=== PATIENT | male | born 1985 | race African-American/Black ===

== ENCOUNTER 2019-04-28 21:49 | Inpatient (IN) | payer SELFPAY ==
[2019-04-28] MEDS ORDERED: Lidocaine 2% EPI 1:200000 MPF*10-20 ML VIAL ONE (22:46)
--- NOTE | 2019-04-29 01:07 | ED ---
Shortness of Breath - HPI Summary HPI Summary: A 34 y/o male presents to [facility] with a chief complaint of SOB for the past few weeks. He also reports headache, eye pain, cough, fevers, chills, N/V. He denies abdominal pain, dysuria, or swelling in his legs. His BMs have been normal. He also claims that he has had lower back pain for 2 months saying after tying his shoe one day his back started to hurt. He denies EtOH use but reports smoking 1ppd. He reports that his cousin may have a Hx of bloodclots and HTN, but he denies any long travel. He denies taking any medications. He denies any STDs but last time he was tested was 1.5 years ago. The patient has a boyfriend. - History of Current Complaint Chief Complaint: EDShortnessOfBreath Time Seen by Provider: 04/29/19 00:48 Hx Obtained From: Patient Onset/Duration: Gradual Onset, Lasting Weeks, Still Present Timing: Constant Current Severity: Mild Dyspnea At: Rest Aggravating Factors: Nothing Alleviating Factors: Nothing Associated Signs & Symptoms: Cough (Nonproductive), Fever, Chills - Allergy/Home Medications Allergies/Adverse Reactions: Allergies Allergy/AdvReac Type Severity Reaction Status Date / Time No Known Allergies Allergy Verified 04/28/19 21:52 PMH/Surg Hx/FS Hx/Imm Hx Sensory History: Denies: Hx Deafness EENT History: Denies: Hx Deafness Infectious Disease History: No Infectious Disease History: Denies: Traveled Outside the [place] in Last 30 Days - Family History Known Family History: Positive: Hypertension, Blood Disorder - Social History Alcohol Use: None Hx Substance Use: No Substance Use Type: Reports: None Hx Tobacco Use: Yes Smoking Status (MU): Current Every Day Smoker Type: Cigarettes Amount Used/How Often: 1ppd Review of Systems Positive: Fever, Chills Eyes: Other - positive: eye pain Positive: Shortness Of Breath, Cough Positive: Vomiting, Nausea. Negative: Abdominal Pain Negative: dysuria Positive: Myalgia - back pain. Negative: Edema Positive: Headache All Other Systems Reviewed And Are Negative: Yes Physical Exam - Summary Physical Exam Summary: Constitutional: Well-developed, Well-nourished, Alert. (-) Distressed Skin: Warm, Dry HENT: Normocephalic; Atraumatic Eyes: Conjunctiva normal Neck: Musculoskeletal ROM normal neck. (-) JVD, (-) Stridor, (-) Tracheal deviation Cardio: Tachycardic, normal S1 [id number] sounds normal; Intact distal pulses; The pedal pulses are 2+ and symmetric. Radial pulses are 2+ and symmetric. Pulmonary/Chest wall: Effort normal. (-) Respiratory distress, (-) Wheezes, (-) Rales Abd: Soft, (-) tenderness, (-) Distension, (-) Guarding, (-) Rebound Musculoskeletal: (-) Edema Neuro: Alert, Oriented x3 Psych: Mood and affect Normal Triage Information Reviewed: Yes Vital Signs On Initial Exam: Initial Vitals Temp Pulse Resp BP Pulse Ox 100.5 F 103 18 146/80 100 04/28/19 21:51 04/28/19 21:51 04/28/19 21:51 04/28/19 21:51 04/28/19 21:51 Vital Signs Reviewed: Yes Diagnostics - Vital Signs Vital Signs Temp Pulse Resp BP Pulse Ox 04/28/19 23:43 99.6 F 103 16 136/65 93 04/28/19 21:51 100.5 F 103 18 146/80 100 - Laboratory Result Diagrams: 04/29/19 01:56 04/29/19 01:19 Lab Statement: Any lab studies that have been ordered have been reviewed, and results considered in the medical decision making process. - CT Chest/thorax CTA CT Interpretation Completed By: Radiologist Summary of CT Findings: Negative CTA chest. No pulmonary embolism is identified. ED physician has reviewed this imaging report. Re-Evaluation - Re-Evaluation First Eval Re-Evaluation Time: 02:41 Change: Unchanged Comment: he consented for blood transfusion Course/Dx - Course Course Of Treatment: A 34 y/o male presents to [facility] with a chief complaint of SOB for the past few weeks. The physical exam revealed that the patient is tachycardic, normal S1 S2, no wheezing, rhonchi or rales. Chest/thorax CTA impression: Negative CTA chest. No pulmonary embolism is identified. Bloodwork, chemistries and urines obtained. Hemoglobin of 4.6 and platelet count of 3. The patient tested negative for HIV. In the ED course the patient was given Pepcid IV, Iodixanol IV, Toradol IV, Lactated Ringers IV, Xylocaine and Zofran IV. Case discussed with Dr. Montalvo, hospitalist, who accepted the patient for admission. The patient is agreeable with this plan. - Diagnoses Provider Diagnoses: Thrombocytopenia, Anemia - Physician Notifications Discussed Care of Patient With: Salvador Montalvo Time Discussed With Above Provider: 03:32 Instructed by Provider To: Admit As Inpatient Discharge - Sign-Out/Discharge Documenting (check all that apply): Patient Departure - admit All imaging exams completed and their final reports reviewed: Yes Patient Received Moderate/Deep Sedation with Procedure: No - Discharge Plan Condition: Fair Disposition: ADMITTED TO [facility] - Billing Disposition and Condition Condition: FAIR Disposition: Admitted to [facility] - Attestation Statements Document Initiated by Jessica: Yes Documenting Scribe: John Rowland Provider For Whom Jessica is Documenting (Include Credential): Noman Raymundo MD Scribe Attestation: John Cooper scribed for Noman Raymundo MD on 04/29/19 at 0629. Scribe Documentation Reviewed: Yes Provider Attestation: The documentation as recorded by the John tillman accurately reflects the service I personally performed and the decisions made by , Noman Raymundo MD Status of Scribe Document: Viewed
[2019-04-29] MEDS ORDERED: Ondansetron INJ* 2 MG/ML VIAL IV ONE (01:08)
[2019-04-29] MEDS ORDERED: Famotidine IV* 10 MG/ML 2 ML (20 mg) IV SLOW PU ONE (01:08)
[2019-04-29] MEDS ORDERED: Ketorolac INJ* 30 MG/ML 1 ML VIAL IV PUSH ONE (01:09)
[2019-04-29 01:21] LABS: Urine Appearance Clear; Urine Bilirubin Negative (Negative); Urine Blood Negative (Negative); Urine Color Yellow; Urine Glucose Negative (Negative); Urine Ketones Negative (Negative); Urine Nitrite Negative (Negative); Urine Protein Negative (Negative); Urine Specific Gravity 1.019 (1.010-1.030); Urine Urobilinogen Negative (Negative)
[2019-04-29 01:39] LABS: Hematocrit 13 % (42-52); Hemoglobin 4.9 g/dL (14.0-18.0); Mean Corpuscular HGB Conc 36 g/dL (31-36); Mean Corpuscular Hemoglobin 38 pg (27-31); Mean Corpuscular Volume 105 fL (80-94); Mean Platelet Volume 9.4 fL (7.4-10.4); Platelet Count 3 10^3/uL (150-450); Red Blood Count 1.28 10^6 /uL (4.18-5.48); Red Cell Distribution Width 16 % (10-15)
[2019-04-29 01:42] LABS: Albumin 4.2 g/dL (3.2-5.2); BUN/Creatinine Ratio 12.6 (8-20); Calcium 8.9 mg/dL (8.6-10.3); EGFR African American 67.7 (>60); Globulin 2.1 g/dL (2-4); Potassium 3.8 mmol/L (3.5-5.0); Total Bilirubin 0.5 mg/dL (0.2-1.0); Total Protein 6.3 g/dL (6.4-8.9)
[2019-04-29] MEDS ORDERED: Iodixanol* (CONTRAST) 320 MG/ML 100 ML SDV IV ONE (01:52)
[2019-04-29] MEDS ORDERED: Lactated Ringers 1000 ML Bag* 1,000 ML IV ONE (02:00)
[2019-04-29 02:20] LABS: Hematocrit 14 % (42-52); Mean Corpuscular HGB Conc 36 g/dL (31-36); Mean Corpuscular Hemoglobin 38 pg (27-31); Mean Corpuscular Volume 106 fL (80-94); Mean Platelet Volume 9.1 fL (7.4-10.4); Red Blood Count 1.27 10^6 /uL (4.18-5.48); Red Cell Distribution Width 16 % (10-15)
[2019-04-29 03:04] LABS: HIV 4th Generation Negative (Negative)
[2019-04-29 03:39] LABS: Activated Partial Thrombo Time 32.7 seconds (26.0-38.0); INR 1.16 (0.82-1.09)
[2019-04-29 05:19] LABS: ABS Lymphocytes 2.3 10^3/ul (1.0-4.8); ABS Monocytes 0.1 10^3/ul (0-0.8); ABS Neutrophils 0.6 10^3/ul (1.5-7.7); Lymphocyte % 76.6 %; Nucleated Red Blood Cells % 0.1
[2019-04-29 05:21] LABS: ABS Lymphocytes 2.3 10^3/ul (1.0-4.8); ABS Monocytes 0.1 10^3/ul (0-0.8); ABS Neutrophils 0.6 10^3/ul (1.5-7.7); Lymphocyte % 75.3 %; Nucleated Red Blood Cells % 0.1
[2019-04-29 05:30] LABS: Folate 11.37 ng/mL (>3.99)
[2019-04-29 07:12] LABS: Hematocrit 14 % (42-52); Hemoglobin 4.9 g/dL (14.0-18.0); Mean Corpuscular HGB Conc 37 g/dL (31-36); Mean Corpuscular Hemoglobin 39 pg (27-31); Mean Corpuscular Volume 105 fL (80-94); Mean Platelet Volume 9.8 fL (7.4-10.4); Platelet Count 2 10^3/uL (150-450); Red Blood Count 1.28 10^6 /uL (4.18-5.48); Red Cell Distribution Width 16 % (10-15); White Blood Count 2.7 10^3/uL (3.5-10.8)
[2019-04-29] MEDS ORDERED: Acetaminophen TAB* 325 MG PO PRN (07:25)
--- NOTE | 2019-04-29 07:59 | HP ---
History of Present Illness - History of Present Illness Reason for Visit: dyspnea History of Present Illness: Patient is 34 year old man with no significant past medical history, who has been increasingly short of breath for 2 weeks. He also has had low energy for 2 weeks, and has had low back pain for 1 year. This evening he had a headache and pain behind his eyes, so he decided to come to the ER. He just moved to [facility] from [place] about 5-6 weeks ago, and he has no primary care doctor here. He denies fever, denies chest pain. He has not traveled out of [place] recently, and he is on no new medications. 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 [employer] Alcohol: None Drugs: None Lives: Other - monogamous male partner, no children Review of Systems - Measurements Intake and Output: Intake and Output Last 24 Hours 04/27/19 04/28/19 04/29/19 04/30/19 06:59 06:59 06:59 06:59 Weight 79.605 kg - Review of Systems Constitutional Symptoms: Positive: Weakness, Fatigue Negative: Weight Gain, Weight Loss, Fever, Night Sweats Dermatology: Positive: Normal HEENT: Positive: Normal Eyes: Positive: Eye Pain Negative: Change in Vision, Double Vision Thyroid: Positive: Normal Pulmonary: Positive: Shortness of Breath, Exercise Intolerance Negative: Cough, Hemoptysis, Wheezing Cardiology: Positive: Shortness of Breath Negative: Chest Pain, Palpitations, Syncope, Proximal NocturnalDyspnea Gastroenterology: Positive: Normal Genital - Urinary: Positive: Normal Musculoskeletal: Positive: Low Back Pain Endocrinology: Positive: Normal Hematologic/Lymphatic: Negative: Hx Leukemia, Hx Lymphoma, Use of Anticoagulant, Use of Antiplatelet Drugs Neurology: Positive: Headache Negative: Migraines, Change in Vision Psychiatry: Positive: Normal Allergic/Immunologic: Negative: Hx HIV Objective Active Medications: Home Medication: Acetaminophen (Tylenol Tab*) 650 mg PO Q6H PRN Vital Signs - 8 hr 04/29/19 04/29/19 04/29/19 00:49 00:51 01:00 Temperature Pulse Rate 93 93 109 Respiratory Rate Blood Pressure 163/77 (mmHg) O2 Sat by Pulse 100 100 100 Oximetry 04/29/19 04/29/19 06:27 06:51 Temperature 36.3 C Pulse Rate 90 Respiratory 20 20 Rate Blood Pressure 136/65 (mmHg) O2 Sat by Pulse 100 Oximetry Selected Entries 04/28/19 04/28/19 04/29/19 21:51 23:43 05:59 Temperature 38.1 C 37.6 C 36.6 C 04/29/19 06:27 Temperature 36.3 C Oxygen Devices in Use Now: None Appearance: alert, no distress Eyes: No Scleral Icterus, - - pale conjunctiva Ears/Nose/Mouth/Throat: NL Teeth, Lips, Gums, Clear Oropharnyx Neck: NL Appearance and Movements; NL JVP, Trachea Midline Respiratory: Symmetrical Chest Expansion and Respiratory Effort, Clear to Auscultation Cardiovascular: NL Sounds; No Murmurs; No JVD, RRR Abdominal: NL Sounds; No Tenderness; No Distention, No Hepatosplenomegaly Lymphatic: No Cervical Adenopathy, No Axillary Adenopathy Extremities: No Edema Skin: No Rash or Ulcers Neurological: Alert and Oriented x 3, NL Muscle Strength and Tone Lines/Tubes/Other Access: Clean, Dry and Intact Peripheral IV Nutrition: Taking PO's Result Diagrams: 04/29/19 06:21 04/29/19 01:19 Additional Lab and Data: Laboratory Tests 04/29/19 04/29/19 04/29/19 00:52 01:19 01:56 INR (Anticoag Therapy) APTT Glucose 99 AST 22 ALT 25 Lipase 31 Ur Specific [place] 1.019 Urine Protein Negative Urine Blood Negative Ur Leukocyte Esterase Negative HIV 1&2 Ab/P24 Ag 4thGn Negative 04/29/19 02:55 INR (Anticoag Therapy) 1.16 H APTT 32.7 Glucose AST ALT Lipase Ur Specific [place] Urine Protein Urine Blood Ur Leukocyte Esterase HIV 1&2 Ab/P24 Ag 4thGn Diagnostic Imaging: CTA chest: no infiltrates, no pulmonary emboli Assess/Plan/Problems-Billing Assessment: 34 year old presenting with pancytopenia - Patient Problems (1) Pancytopenia Current Visit: Yes Status: Acute Priority: High Code(s): D61.818 - OTHER PANCYTOPENIA SNOMED Code(s): 152249352 Comment: -Patient will be admitted to medical service, will consult with Dr. Ospina of hematology -Differential diagnosis would include leukemia, viral exposure such as CMV, bacterial illness such as rickettsia or erlichiosis/babesiosis, drug-induced, or rheumatic disease. -HIV test negative, discussed with patient. -Patient had low-grade fever on admission, does not appear to have sepsis. (2) DVT prophylaxis Current Visit: Yes Status: Acute Priority: Low Code(s): Z29.9 - ENCOUNTER FOR PROPHYLACTIC MEASURES, UNSPECIFIED SNOMED Code(s): 945467775 Comment: -early ambulation Status and Disposition: inpatient
[2019-04-29 08:04] LABS: Uric Acid 4.3 mg/dL (4.4-7.6)
--- NOTE | 2019-04-29 08:18 | CONSULT ---
Consultation - Reason for Consultation Reason for Consultation: pancytopenia, febrile neutropenia Ordering Provider: Salvador Montalvo Chief Complaint: shortness of breath and fatigue History of Present Illness: Generally well 34 yo homosexual M w no significant PMH presenting with fatigue and increasing SOB and found to be pancytopenic. Nelson reports feeling generally very well and active until 2 1/2 weeks ago when he starting becoming progressively more fatigued and SOB on activity. 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 At the urging of his partner he came to the ER where he was febrile at 100.5 with an ANC of 600, Hb of 4.9, mcv 105 and platelets of 3 (normal MPV). Hematology was not notified at the time. CTA of the chest was unremarkable. He was admitted with a diagnosis of pancytopenia. Unfortunately he has not had blood or urine cultures or antibiotics as of yet, though these are now ordered upon my consultation. He denies fevers, night sweats, weight loss, rash, joint aches, or anorexia. Acute HIV was negative, liver enzymes, including bilirubin were normal, and B12 was 222. He has no remarkable family history and is not aware of any tick bites. He is currently receiving a unit of blood. Allergies/Medications Medication: Acetaminophen (Tylenol Tab*) 650 mg PO Q6H PRN PRN Reason: pain/fever Cefepime HCl (Maxipime 2 Gm In Dextrose Duplex (*)) 2 gm in 50 mls @ 100 mls/ hr IV Q8H YANI Allergies/Adverse Reactions: Allergies Allergy/AdvReac Type Severity Reaction Status Date / Time No Known Allergies Allergy Verified 04/28/19 21:52 History - Past Medical History Other History: none - Family History Hx Family Cancer: No - Social History Hx Alcohol Use: No Hx Tobacco Use: Yes - 1 ppd Marital Status: Life Partner Review of Systems - Review of Systems Constitutional Symptoms: Positive: Fatigue Dermatology: Positive: Normal HEENT: Positive: Normal Eyes: Positive: Normal Thyroid: Positive: Normal Pulmonary: Positive: Shortness of Breath Cardiology: Positive: Normal Gastroenterology: Positive: Normal Genital - Urinary: Positive: Normal Endocrinology: Positive: Normal Neurology: Positive: Normal Psychiatry: Positive: Normal Physical Exam - Physical Exam Physical Examination: Vital Signs Temp Pulse Resp BP Pulse Ox 97.3 F 90 20 136/65 100 06/27/19 06:27 04/29/19 06:27 04/29/19 06:51 04/29/19 06:27 04/29/19 06:27 T max 100.5 AA male lying flat in nad perr eomi poor dentition no ulcerations CTA bl s1 s2 nl soft nt +bs, no HSM no LE edema no rash A+O x 3 nonfocal neurological exam Results - Lab Results Lab Results: 04/29/19 04/29/19 04/29/19 00:52 01:19 01:19 WBC 3.0 L RBC 1.28 L Hgb 4.9 L* Hct 13 L MCV 105 H MCH 38 H MCHC 36 RDW 16 H Plt Count 3 L* MPV 9.4 Neut % (Auto) 20.0 Lymph % (Auto) 76.6 [place] % (Auto) 3.0 Eos % (Auto) 0.0 Baso % (Auto) 0.4 Absolute Neuts (auto) 0.6 L* Absolute Lymphs (auto) 2.3 Absolute Monos (auto) 0.1 Absolute Eos (auto) 0.0 Absolute Basos (auto) 0.0 Absolute Nucleated RBC 0.0 Nucleated RBC % 0.1 INR (Anticoag Therapy) APTT Sodium 137 Potassium 3.8 Chloride 107 Carbon Dioxide 25 Anion Gap 5 BUN 18 Creatinine 1.43 H Est GFR ( Amer) 67.7 Est GFR (Non-Af Amer) 56.0 BUN/Creatinine Ratio 12.6 Glucose 99 Uric Acid 4.3 L Calcium 8.9 Iron 266 H TIBC 298 % Saturation 89 H Unsat Iron Binding 32 Transferrin 213 Total Bilirubin 0.50 AST 22 ALT 25 Alkaline Phosphatase 53 Lactate Dehydrogenase 284 H Total Protein 6.3 L Albumin 4.2 Globulin 2.1 Albumin/Globulin Ratio 2.0 Lipase 31 Vitamin B12 222 Folate 11.37 Urine Color Yellow Urine Appearance Clear Urine pH 7.0 Ur Specific [place] 1.019 Urine Protein Negative Urine Ketones Negative Urine Blood Negative Urine Nitrate Negative Urine Bilirubin Negative Urine Urobilinogen Negative Ur Leukocyte Esterase Negative Urine Glucose Negative HIV 1&2 Ab/P24 Ag 4thGn Blood Type Antibody Screen Crossmatch 04/29/19 04/29/19 04/29/19 01:56 01:56 01:56 WBC 3.0 L RBC 1.27 L Hgb 4.9 L* Hct 14 L MCV 106 H MCH 38 H MCHC 36 RDW 16 H Plt Count 3 L* MPV 9.1 Neut % (Auto) 21.3 Lymph % (Auto) 75.3 [place]ancock % (Auto) 3.4 Eos % (Auto) 0.0 Baso % (Auto) 0.0 Absolute Neuts (auto) 0.6 L* Absolute Lymphs (auto) 2.3 Absolute Monos (auto) 0.1 Absolute Eos (auto) 0.0 Absolute Basos (auto) 0.0 Absolute Nucleated RBC 0.0 Nucleated RBC % 0.1 INR (Anticoag Therapy) APTT Sodium Potassium Chloride Carbon Dioxide Anion Gap BUN Creatinine Est GFR ( Amer) Est GFR (Non-Af Amer) BUN/Creatinine Ratio Glucose Uric Acid Calcium Iron TIBC % Saturation Unsat Iron Binding Transferrin Total Bilirubin AST ALT Alkaline Phosphatase Lactate Dehydrogenase Total Protein Albumin Globulin Albumin/Globulin Ratio Lipase Vitamin B12 Folate Urine Color Urine Appearance Urine pH Ur Specific [place] Urine Protein Urine Ketones Urine Blood Urine Nitrate Urine Bilirubin Urine Urobilinogen Ur Leukocyte Esterase Urine Glucose HIV 1&2 Ab/P24 Ag 4thGn Negative Blood Type B Positive Antibody Screen Negative Crossmatch See Detail 04/29/19 04/29/19 02:55 06:21 WBC 2.7 L RBC 1.28 L Hgb 4.9 L* Hct 14 L MCV 105 H MCH 39 H MCHC 37 H RDW 16 H Plt Count 2 L* MPV 9.8 Neut % (Auto) Lymph % (Auto) [place]ancock % (Auto) Eos % (Auto) Baso % (Auto) Absolute Neuts (auto) Absolute Lymphs (auto) Absolute Monos (auto) Absolute Eos (auto) Absolute Basos (auto) Absolute Nucleated RBC Nucleated RBC % INR (Anticoag Therapy) 1.16 H APTT 32.7 Sodium Potassium Chloride Carbon Dioxide Anion Gap BUN Creatinine Est GFR ( Amer) Est GFR (Non-Af Amer) BUN/Creatinine Ratio Glucose Uric Acid Calcium Iron TIBC % Saturation Unsat Iron Binding Transferrin Total Bilirubin AST ALT Alkaline Phosphatase Lactate Dehydrogenase Total Protein Albumin Globulin Albumin/Globulin Ratio Lipase Vitamin B12 Folate Urine Color Urine Appearance Urine pH Ur Specific [place] Urine Protein Urine Ketones Urine Blood Urine Nitrate Urine Bilirubin Urine Urobilinogen Ur Leukocyte Esterase Urine Glucose HIV 1&2 Ab/P24 Ag 4thGn Blood Type Antibody Screen Crossmatch smear: small mature appearing lymphocytes, occasional teardrops, rare neutrophils with toxic granulations, very rare schistocytes, very few platelets Assessment and Plan Impression: 34 yo M in excellent overall health with 2 weeks of rather acute onset fatigue and SOB and found to be profoundly pancytopenic with febrile neutropenia. Though the smear is relatively benign there is teardropping. The differential diagnosis is broad and includes aplastic anemia, acute leukemia, viral infection (though without liver enzyme abnormalities and this degree of pancytopenia this is less likely, possibly parvovirus), PNH, or tick borne illness. TTP would be extremely unlikely with normal bilirubin, AST and only mildly elevated LDH in the setting of profound anemia. I do think he needs a complete work up including bone marrow biopsy, however given this differential he would be best served having this done at a tertiary care center that could provide induction chemotherapy if needed. I have requested cultures and initiation of antibiotics VERONIKA. I have discussed the case extensively with the hospitalist service.
[2019-04-29 08:47] LABS: Ferritin 400.1 ng/mL (24-336)
[2019-04-29 09:32] LABS: ABS Monocytes 0.1 10^3/ul (0-0.8); ABS Neutrophils 0.6 10^3/ul (1.5-7.7); Eosinophil % 0.1 %; Lymphocyte % 74.5 %; Nucleated Red Blood Cells % 0.1
[2019-04-29] MEDS: Cefepime 2 GM in Dextrose(*) 2 GM/50 ML BAG IV SCH ×2 (10:08→18:45)
--- NOTE | 2019-04-29 10:54 | DS ---
TRANSFER SUMMARY PCP: No PCP Date of Admission: 04/29/19 Date of Transfer: 04/29/19 Consulting Service: Hematology (Dr. Judith Ospina) Accepting Service: Hematology at [facility] (Dr. Yas Stevenson) Principal Discharge Diagnoses: 1. Pancytopenia 2. Neutropenic Fever 3. ANGELICA (vs. CKD) Physical Exam: T 97.9 BP 124/68 RR 19 HR 86 Pulse ox 100% on Room air General: Alert, well appearing muscular man in no distress, PRBCs are infusing HEENT: conjunctival pallor, pupils 4mm b/l and reactive to light, no nystagmus Neck: No jvp, no adenopathy Chest: RRR, no murmurs, PMI nondisplaced, lungs are clear b/l Abd: soft, nontender, nondistended, spleen is not palpable, liver palpable at costal margin Ext: no edema, echymoses, rashes, or ulcers Neuro: alert, pleasant, oriented, appropriate Labs: WBC 2.7 (ANC 600) Hgb 4.9 Plt 2 INR 1.16 Na 137 K 3.8 Cl 107 BUN 18 Creat 1.43 AST 22 ALT 25 Alk Phos 53 LDH 284 HIV 4th gen is negative Imaging: CTA chest: negative for PE, lymph nodes unremarkable. Hospital Course: 1. Pancytopenia This is a 34 year old man with no past medical history (except history of drug abuse, none currently) who presented to the [facility] ED on 04/28 with two weeks of worsening dyspnea on exertion and fatigue. On further questioning he admits that he has noticed a decrease in exercise tolerance over the past five months. He had no other complaints, no recent illnesses, hospitalizations, drugs/ medications, travel, etc. He was found to be profoundly pancytopenic. Hematology was consulted and recommended transfer to a tertiary hematology center given the inclusion of acute leukemia on our differential. At the time of this summary, he has received 1U PRBCs with another unit being hung now, and a pool of platelets is also being hung. A lyme panel is pending at the time of transfer. 2. Neutropenic Fever Temp was 100.5 in the ED with an ANC of 600. He does complain of a dry cough but no other localizing symptoms. He was treated with cefepime. 3. ANGELICA vs. CKD Presumably ANGELICA but no prior labs for comparison. He has received blood products as above and 1L of iv fluids at the time of transfer. Condition at the time of transfer: guarded Disposition: transfer to [facility] for further work up for hematologic malignancy
[2019-04-29] MEDS ORDERED: Ondansetron INJ* 2 MG/ML VIAL IV PRN (11:15)
[2019-04-29] MEDS ORDERED: NS 0.9% 1000 ML** 1,000 ML IV ONE (11:35)
--- NOTE | 2019-04-29 11:59 | PN ---
Hospitalist Progress Note Date of Service: 04/29/19 Mr. Meadows's partner Jignesh arrived and I updated him on Nelson's condition and our plan to transfer him to [place]. They have a house in [place] and prefer a transfer to [place]. He understands the cost that may be associated with this. I have a call out to the transfer center and am awaiting a call back from hematology at [facility].
[2019-04-29] MEDS ORDERED: PROCHLORPERAZINE INJ 5 MG/ML 2 ML VIAL IV PRN (13:42)
[2019-04-29] MEDS ORDERED: Morphine INJ* 2 MG/ML 1 ML SYRINGE (TWO MG - NEW SYRINGE VERSION) IV PRN (13:43)
[2019-04-29] MEDS ORDERED: Etomidate* 2 MG/ML 20 ML VIAL (40 MG) ONE (14:20)
--- NOTE | 2019-04-29 14:30 | ED ---
Progress - Progress Note Progress Note: I was called emergently to the fourth floor [facility] as part of a ABC alert response team. Briefly, the patient has acute leukemia and he had a sudden change in mental status to the point that he is unresponsive. He had sonorous respirations. PROCEDURE NOTE: PROCEDURE NAME: ENDOTRACHEAL INTUBATION INDICATION: UNRESPONSIVE, RESP FAILURE DETAILS: Consent was emergent. Respiratory therapy was immediately available at the bedside. The patient was suctioned well being bag valve masked at 100% oxygen. A Mac 3 chloride scope was inserted into the mouth, a 7.5 endotracheal tube was inserted to 21 cm at the lips. There was positive color change capnography, bilateral breath sounds which are symmetric, there are no epigastric sounds. Chest x-ray is pending and will be followed up by the hospitalist service. Dr. Naik and Dr. Dowd managing the patient. Re-Evaluation - Re-Evaluation First Eval Re-Evaluation Time: 02:41 Change: Unchanged Comment: he consented for blood transfusion Course/Dx - Course Course Of Treatment: A 34 y/o male presents to [facility] with a chief complaint of SOB for the past few weeks. The physical exam revealed that the patient is tachycardic, normal S1 S2, no wheezing, rhonchi or rales. Chest/thorax CTA impression: Negative CTA chest. No pulmonary embolism is identified. Bloodwork, chemistries and urines obtained. Hemoglobin of 4.6 and platelet count of 3. The patient tested negative for HIV. In the ED course the patient was given Pepcid IV, Iodixanol IV, Toradol IV, Lactated Ringers IV, Xylocaine and Zofran IV. Case discussed with Dr. Montalvo, hospitalist, who accepted the patient for admission. The patient is agreeable with this plan. - Diagnoses Provider Diagnoses: Thrombocytopenia, Anemia - Provider Notifications Time Discussed With Above Provider: 03:32 Instructed by Provider To: Admit As Inpatient Discharge - Sign-Out/Discharge Documenting (check all that apply): Post-Discharge Follow Up All imaging exams completed and their final reports reviewed: Yes - Discharge Plan Condition: Critical Disposition: ADMITTED TO [facility] - Billing Disposition and Condition Condition: CRITICAL Disposition: Admitted to [facility]
[2019-04-29] MEDS ORDERED: Mannitol 25% (12.5 GM) 50 ML* 12.5 GM/50 ML VIAL ONE ×2 (14:51→15:43)
--- NOTE | 2019-04-29 15:10 | PN ---
Hospitalist Progress Note Date of Service: 04/29/19 Event Note After I went back to talk with Nelson and Jignesh about changing our plans for transfer around noon, I spoke with the transfer center and was awaiting a call back from [facility]. Around 13:40, his nurse paged me that he was having a headache and I ordered morphine and was on my way to see him when she paged me again and reported mental status changes. When I arrived from across the hallway, he became unresponsive and apneic minutes later. He maintained a pulse throughout this event. He was bagged and Dr. Ag arrived for an ET tube placement, which did not require sedation. We were most concerned for an intracranial bleed and called a chelo verma. His pupils were 3mm and sluggishly reactive to light and he was not responding to painful stimuli. Dr. Graham arrived. He was able to be oxygenated, blood pressure was 170s/90s, BG was > 220. We called Dr. Hernandez and Dr. Ospina who both met us in the CT room. A CT showed cerebellar hemorrhage with edema, compression of the 4th ventricle. We brought him to the ICU, discussed with Dr. Reyna, who is currently placing a central line for hypertonic saline, mannitol, and he is also being hyperventilated. More platelets have been ordered. Dr. Graham is discussing the case with Rizwan and Pramod to arrange transfer to a neuro ICU. Dr. Hernandez does not offer decompression until platelet count is improved. I have discussed these events with the patient's partner, Jignesh and conveyed my concerns for a grave prognosis. Earlier this morning, Nelson verbally appointed Jignesh as his health care proxy when I was in the room with them. I offered to call Nelson's grandmother, but Jignesh prefers to call her.
[2019-04-29] MEDS ORDERED: Mannitol 25% (12.5 GM) 50 ML* 12.5 GM/50 ML VIAL IV ONE (15:15)
--- NOTE | 2019-04-29 15:15 | PN ---
Progress Note - Progress Note Date of Service: 04/29/19 SOAP: events of the afternoon reviewed. patient began complaining of nausea and apparently vomited around 1045 while being transfused, prompting transfusion reaction work up. zofran administered and transfusion work up initiated. At some point after this developed a headache and became unresponsive and apneic with ABC alert (see notes). currently intubated in ICU. stat CT head without contrast reviewed with Dr. Graham and Dr. Hernandez and most consistent with an intracranial hemorrhage with significant edema. 2 U platelets in house and being transfused. hemodynamically stable. would recommend emergent transfer to tertiary care center if deemed stable enough for platelet transfusion and neurosurgical decompression. Unclear etiology of pancytopenia but likely primary marrow process and not consumption given normal MPV, lack of evidence for hemolysis by labs or exam, and lack of splenomegaly. should hopefully respond at least for some period of time to platelet transfusion. If immediate transfer not possible or not deemed safe would recommend getting at least 2 more units of platelets here and transfusing VERONIKA. should be able to have surgery if plts >75 and can be maintained there. please check post transfusion platelet count. These recommendations expressed to ICU, neurology, and primary care team. prognosis extremely guarded. HCP updated with Dr. Naik
[2019-04-29 15:18] LABS: Mean Platelet Volume 12.2 fL (7.4-10.4); Platelet Count 2 10^3/uL (150-450)
[2019-04-29] MEDS ORDERED: Sodium Chloride 3% HYPERTONIC* 500 ML IV ONE (15:24)
[2019-04-29] MEDS ORDERED: Norepinephrine 16MCG/ML IVPRE* 4,000 MCG/250 ML BAG IV ONE (15:37)
--- NOTE | 2019-04-29 15:51 | PN ---
Subjective Date of Service: 04/29/19 - This is a NEUROLOGY CONSULT NOTE Length of Stay: 1 Days Neurology was consulted by activating Code Acosta for sudden onset unresponsive state. Interval History: The history was obtained by reviewing the electronic medical records and discussing with the patient's providers. Mr. Meadows is a 34-year-old man who was healthy before two weeks, who presented to [facility] with complaints of worsening shortness of breath and fatigue. He was admitted with a diagnosis of severe pancytopenia. He received blood transfusion today approximately 1.5 units and platelets. At 13:45-13:55, the patient developed headaches. Last known well time was 13:55 (reported by his bedside nurse Alana). Dr. Dowd and Heean were immediately at bedside at 13: 55-14:00 for an assessment. The patient was placed supine for an EKG when suddenly he became unresponsive. Stroke code was activated at 14:11. Stroke team at bedside at 14:13. CAT team was also called. Pt was unresponsive. No CPR was initiated as he never lost a pulse. He was intubated and transferred immediately to CT where a CT head without contrast showed bilateral left worse than right cerebellar hemorrhage, with surrounding edema, cerebellar herniation compressing the fourth ventricle without hydrocephalus. He also has petichael hemorrhage in the right parietal lobe. NIHSS was 38. Review of Systems: The patient is unable to participate with a review of systems. Family History: Findings - No family history of stroke or seizures Social History: Findings - lives with his male partner Past Medical History: Findings - tobacco use Objective Active Medications: Acetaminophen (Tylenol Tab*) 650 mg PO Q6H PRN PRN Reason: pain/fever Last Admin: 04/29/19 10:07 Dose: 650 mg Cefepime HCl (Maxipime 2 Gm In Dextrose Duplex (*)) 2 gm in 50 mls @ 100 mls/ hr IV Q8H YANI Last Admin: 04/29/19 10:08 Dose: 100 mls/hr Sodium Chloride (Hypertonic) (Hypertonic Sod Chloride 3%*) 500 mls @ 30 mls/hr IV ONCE ONE; Protocol Stop: 04/30/19 08:03 Morphine Sulfate (Morphine Inj (Syringe))*) 2 mg IV Q2H PRN PRN Reason: PAIN Ondansetron HCl (Zofran Inj*) 4 mg IV Q4H PRN PRN Reason: NAUSEA Last Admin: 04/29/19 12:18 Dose: 4 mg Prochlorperazine Edisylate (Compazine Inj*) 5 mg IV Q6H PRN PRN Reason: NAUSEA/VOMITING Vital Signs 04/29/19 04/29/19 04/29/19 03:04 05:59 06:27 Temperature 97.8 F 97.3 F Pulse Rate 94 90 Respiratory 18 16 20 Rate Blood Pressure 116/56 136/65 (mmHg) O2 Sat by Pulse 98 100 Oximetry 04/29/19 04/29/19 04/29/19 06:51 08:00 09:08 Temperature 97.9 F Pulse Rate 86 Respiratory 20 20 19 Rate Blood Pressure 124/68 (mmHg) O2 Sat by Pulse 100 Oximetry Intake and Output Last 24 Hours 04/27/19 04/28/19 04/29/19 04/30/19 06:59 06:59 06:59 06:59 Intake Total 120 Balance 120 Weight 175 lb 8 oz Intake: Oral 120 Oxygen Devices in Use Now: None Neurology Exam: General: GCS: 3 Critically ill built man who is unresponsive. He is not breathing over the ventilator. HEENT: Normocephelic/atraumatic, sclera anicteric, mucous membranes moist Neck: Supple Chest: Clear to auscultation bilaterally Cardiovascular: Regular rate and rhythm without murmurs, rubs, gallops Extremities: No clubbing, cyanosis, or edema Neurological Findings: Unresponsive. Intubated. Not on sedation. He did not receive any paralytics. Speech: non verbal Cranial Nerve: Anisocoria with unreactive pupils bilaterally (OD 4 and OS 3). No corneal. No grimace to nasal stimulation. Absent oculocephalic reflexes. No gag reflex. Motor: flaccid tone throughout. Does not respond to noxious stimuli. Sensation: does not localize to pain Deep Tendon Reflex: 0 throughout Coordination: unable to perform Gait: Unable to perform Result Diagrams: 04/29/19 14:30 04/29/19 01:19 Additional Lab and Data: Laboratory Tests 04/29/19 04/29/19 04/29/19 00:52 01:19 01:56 INR (Anticoag Therapy) APTT Glucose 99 AST 22 ALT 25 Lipase 31 Ur Specific Hermleigh 1.019 Urine Protein Negative Urine Blood Negative Ur Leukocyte Esterase Negative HIV 1&2 Ab/P24 Ag 4thGn Negative 04/29/19 02:55 INR (Anticoag Therapy) 1.16 H APTT 32.7 Glucose AST ALT Lipase Ur Specific Hermleigh Urine Protein Urine Blood Ur Leukocyte Esterase HIV 1&2 Ab/P24 Ag 4thGn Microbiology and Other Data: Microbiology 04/29/19 11:19 Transfusion Reaction Gram Stain - Final Blood Bag Assessment/Plan Mr. Meadows is a 34-year-old man with severe unexplained pancytopenia who developed headaches then subsequent unresponsiveness. 1. Acute multifocal intraparenchymal hemorrhage, largest in the left cerebellum with cerebral edema and tonsillar herniation through the foramen magnum: Etiology: unknown. Spontaneous ICH in the setting of severe thrombocytopenia is the likely cause. GCS: 3. ICH score: 4 points (GCS 3, ICH volume > or equal to 30 mL, intratentorial). 97 % mortality Recommendations: - Started 3% hypertonic saline at a rate of 30mL/hr with a sodium goal of 145- 150 mmol/l - Mannitol 50g x 1 push - Check serum plasma osmolality. Goal is serum osmolality of 300-310. IF lower than 300, may repeat a second dose of 50 g IV push - Obtain MRI brain without contrast or repeat CT Head without contrast given change in his neurological examination - Keep MAP of 70-80 with SBP less than 140 mmHg. - Hyperventilate to keep a PCO2 between 30-35 - Neuro checks every 1 hour - Keep HOB at 35 degrees - Order neuron specific enolase - Prognosis: guarded 2. Severe pancytopenia - Defer to the primary team ADDENDUM: 1654 Patient's neurological examination deteriorated within the past 30 minutes (15: 45- 16:15). He has no brainstem or motor response. He has anisocoria with dilated fixed pupils bilaterally. He is normothermic and was started on Levophed with current SBP in the low 100's. Discussed case with Dr. Jones at [facility]. Given the patient's neurological deterioration, the patient would be unstable for transfer. Furthermore, given his current neurological exam, the team at [facility] would have no other interventions to offer. The transfer was cancelled at 16:15. There were no available ICU beds in [facility]. Given the acuity of symptoms and the patient's age, a reasonable approach at this time would be to obtain a STAT MRI brain without contrast. Following the study, discussing any possible life saving surgical options with Dr. Diamond is recommended. If there are no surgical options available, formal brain testing would be the next step. Dr. Reyna agreed to update the family. Prognosis: given the rapid deterioration, his prognosis for a meaningful neurological recovery is grim. This is based on absent brainstem and motor response off sedation. Critical care spent: 95 minutes of which more than 50% was spent re-examining the patient, discussing with family, contacting outside tertiary centers for transfer, and discussing the overall prognosis with the primary team. Please contact me for any questions or concerns.
[2019-04-29 17:34] LABS: INR 1.21 (0.82-1.09)
[2019-04-29 17:36] LABS: Calcium 8.2 mg/dL (8.6-10.3); Potassium 3.1 mmol/L (3.5-5.0)
[2019-04-29] MEDS ORDERED: Gadoteridol* (CONTRAST) 279.3 MG/ML 10 ML IV ONE (17:36)
[2019-04-29 17:42] LABS: EGFR African American 70.5 (>60); EGFR Non-African American 58.3 (>60)
[2019-04-29 18:17] LABS: ABS Lymphocytes 0.5 10^3/ul (1.0-4.8); ABS Monocytes 0.1 10^3/ul (0-0.8); ABS Neutrophils 0.6 10^3/ul (1.5-7.7); Eosinophil % 0.1 %; Hematocrit 14 % (42-52); Hemoglobin 4.9 g/dL (14.0-18.0); Lymphocyte % 46.3 %; Mean Corpuscular HGB Conc 35 g/dL (31-36); Mean Corpuscular Hemoglobin 36 pg (27-31); Mean Corpuscular Volume 103 fL (80-94); Mean Platelet Volume 5.6 fL (7.4-10.4); Nucleated Red Blood Cells % 0.1; Platelet Count 15 10^3/uL (150-450); Red Blood Count 1.36 10^6 /uL (4.18-5.48); Red Cell Distribution Width 16 % (10-15); White Blood Count 1.2 10^3/uL (3.5-10.8)
[2019-04-29 18:38] LABS: Hemoglobin 4.9 g/dL (14.0-18.0); Platelet Count 3 10^3/uL (150-450)
--- NOTE | 2019-04-29 18:38 | PN ---
Date of Service: 04/29/19 Critical Care Services: 34 y/o male without significant PMHx admitted earlier today with headache and pancytopenia Shortly after admission, patient lost consciousness abruptly. 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 Brought to ICU hypotensive (on norepinephrine at 25 mcg/min) and intubated. According to patients boyfriend, he has no known prior medical illnesses. Vital Signs: Temp Pulse Resp BP SpO2 FiO2 95.4 F 79 14 105/57 100 40 Physical Exam: Gen:Unresponsive. No spontaneous respirations HEENT:Pupils fixed and dilated. No corneal reflexes Lungs:Clear Cardiac: Reg rhythm No murmurs Abdomen: Not distended Extremities:Cold. No cyanosis or edema. Fluid Balance (Past 24 Hours): 04/30/19 06:59 Intake Total 701 Output Total 315 Balance 386 Weight 175 lb 8 oz Intake: Oral 120 Platelets 581 Output: Dempsey 315 Labs: Laboratory Results - last 24 hr 04/29/19 04/29/19 04/29/19 00:52 01:19 01:19 WBC 3.0 L RBC 1.28 L Hgb 4.9 L* Hct 13 L MCV 105 H MCH 38 H MCHC 36 RDW 16 H Plt Count 3 L* MPV 9.4 Neut % (Auto) 20.0 Lymph % (Auto) 76.6 Luce % (Auto) 3.0 Eos % (Auto) 0.0 Baso % (Auto) 0.4 Absolute Neuts (auto) 0.6 L* Absolute Lymphs (auto) 2.3 Absolute Monos (auto) 0.1 Absolute Eos (auto) 0.0 Absolute Basos (auto) 0.0 Absolute Nucleated RBC 0.0 Nucleated RBC % 0.1 INR (Anticoag Therapy) APTT Patient Temperature ABG pH ABG pH (Temp Correct) ABG pCO2 ABG pCO2 (Temp Corrct ABG pO2 ABG pO2 (Temp Correct ABG HCO3 ABG O2 Saturation ABG Base Excess Respiration Rate Ventilator Type Vent Mode FiO2 Inspiratory Time PEEP Pressure Support Pressure Control EPAP IPAP BiPAP Sodium 137 Potassium 3.8 Chloride 107 Carbon Dioxide 25 Anion Gap 5 BUN 18 Creatinine 1.43 H Est GFR ( Amer) 67.7 Est GFR (Non-Af Amer) 56.0 BUN/Creatinine Ratio 12.6 Glucose 99 POC Glucose (mg/dL) Lactic Acid Uric Acid 4.3 L Calcium 8.9 Iron 266 H TIBC 298 % Saturation 89 H Unsat Iron Binding 32 Transferrin 213 Ferritin 400.1 H Total Bilirubin 0.50 AST 22 ALT 25 Alkaline Phosphatase 53 Lactate Dehydrogenase 284 H Total Protein 6.3 L Albumin 4.2 Globulin 2.1 Albumin/Globulin Ratio 2.0 Lipase 31 Vitamin B12 222 Folate 11.37 Urine Color Yellow Urine Appearance Clear Urine pH 7.0 Ur Specific Fleming 1.019 Urine Protein Negative Urine Ketones Negative Urine Blood Negative Urine Nitrate Negative Urine Bilirubin Negative Urine Urobilinogen Negative Ur Leukocyte Esterase Negative Urine Glucose Negative HIV 1&2 Ab/P24 Ag 4thGn Blood Type Antibody Screen Crossmatch Transfusion React Rpt Donor Unit # Post-Trans Blood Type Post-Trans ADRI 04/29/19 04/29/19 04/29/19 01:56 01:56 01:56 WBC 3.0 L RBC 1.27 L Hgb 4.9 L* Hct 14 L MCV 106 H MCH 38 H MCHC 36 RDW 16 H Plt Count 3 L* MPV 9.1 Neut % (Auto) 21.3 Lymph % (Auto) 75.3 Luce % (Auto) 3.4 Eos % (Auto) 0.0 Baso % (Auto) 0.0 Absolute Neuts (auto) 0.6 L* Absolute Lymphs (auto) 2.3 Absolute Monos (auto) 0.1 Absolute Eos (auto) 0.0 Absolute Basos (auto) 0.0 Absolute Nucleated RBC 0.0 Nucleated RBC % 0.1 INR (Anticoag Therapy) APTT Patient Temperature ABG pH ABG pH (Temp Correct) ABG pCO2 ABG pCO2 (Temp Corrct ABG pO2 ABG pO2 (Temp Correct ABG HCO3 ABG O2 Saturation ABG Base Excess Respiration Rate Ventilator Type Vent Mode FiO2 Inspiratory Time PEEP Pressure Support Pressure Control EPAP IPAP BiPAP Sodium Potassium Chloride Carbon Dioxide Anion Gap BUN Creatinine Est GFR ( Amer) Est GFR (Non-Af Amer) BUN/Creatinine Ratio Glucose POC Glucose (mg/dL) Lactic Acid Uric Acid Calcium Iron TIBC % Saturation Unsat Iron Binding Transferrin Ferritin Total Bilirubin AST ALT Alkaline Phosphatase Lactate Dehydrogenase Total Protein Albumin Globulin Albumin/Globulin Ratio Lipase Vitamin B12 Folate Urine Color Urine Appearance Urine pH Ur Specific Fleming Urine Protein Urine Ketones Urine Blood Urine Nitrate Urine Bilirubin Urine Urobilinogen Ur Leukocyte Esterase Urine Glucose HIV 1&2 Ab/P24 Ag 4thGn Negative Blood Type B Positive Antibody Screen Negative Crossmatch See Detail Transfusion React Rpt Donor Unit # Post-Trans Blood Type Post-Trans ADRI 04/29/19 04/29/19 04/29/19 02:55 06:21 12:18 WBC 2.7 L RBC 1.28 L Hgb 4.9 L* Hct 14 L MCV 105 H MCH 39 H MCHC 37 H RDW 16 H Plt Count 2 L* MPV 9.8 Neut % (Auto) 22.2 Lymph % (Auto) 74.5 Luce % (Auto) 3.2 Eos % (Auto) 0.1 Baso % (Auto) 0.0 Absolute Neuts (auto) 0.6 L* Absolute Lymphs (auto) 2.0 Absolute Monos (auto) 0.1 Absolute Eos (auto) 0.0 Absolute Basos (auto) 0.0 Absolute Nucleated RBC 0.0 Nucleated RBC % 0.1 INR (Anticoag Therapy) 1.16 H APTT 32.7 Patient Temperature ABG pH ABG pH (Temp Correct) ABG pCO2 ABG pCO2 (Temp Corrct ABG pO2 ABG pO2 (Temp Correct ABG HCO3 ABG O2 Saturation ABG Base Excess Respiration Rate Ventilator Type Vent Mode FiO2 Inspiratory Time PEEP Pressure Support Pressure Control EPAP IPAP BiPAP Sodium Potassium Chloride Carbon Dioxide Anion Gap BUN Creatinine Est GFR ( Amer) Est GFR (Non-Af Amer) BUN/Creatinine Ratio Glucose POC Glucose (mg/dL) Lactic Acid Uric Acid Calcium Iron TIBC % Saturation Unsat Iron Binding Transferrin Ferritin Total Bilirubin AST ALT Alkaline Phosphatase Lactate Dehydrogenase Total Protein Albumin Globulin Albumin/Globulin Ratio Lipase Vitamin B12 Folate Urine Color Urine Appearance Urine pH Ur Specific Fleming Urine Protein Urine Ketones Urine Blood Urine Nitrate Urine Bilirubin Urine Urobilinogen Ur Leukocyte Esterase Urine Glucose HIV 1&2 Ab/P24 Ag 4thGn Blood Type Antibody Screen Crossmatch Transfusion React Rpt Donor Unit # [id number] Post-Trans Blood Type B Positive Post-Trans ADRI Negative 04/29/19 04/29/19 04/29/19 14:12 14:30 14:30 WBC RBC Hgb Hct MCV MCH MCHC RDW Plt Count 2 L* MPV 12.2 H Neut % (Auto) Lymph % (Auto) Luce % (Auto) Eos % (Auto) Baso % (Auto) Absolute Neuts (auto) Absolute Lymphs (auto) Absolute Monos (auto) Absolute Eos (auto) Absolute Basos (auto) Absolute Nucleated RBC Nucleated RBC % INR (Anticoag Therapy) APTT Patient Temperature ABG pH ABG pH (Temp Correct) ABG pCO2 ABG pCO2 (Temp Corrct ABG pO2 ABG pO2 (Temp Correct ABG HCO3 ABG O2 Saturation ABG Base Excess Respiration Rate Ventilator Type Vent Mode FiO2 Inspiratory Time PEEP Pressure Support Pressure Control EPAP IPAP BiPAP Sodium 141 Potassium 3.1 L Chloride 111 Carbon Dioxide 21 L Anion Gap 9 BUN 18 Creatinine 1.38 H Est GFR ( Amer) 70.5 Est GFR (Non-Af Amer) 58.3 BUN/Creatinine Ratio 13.0 Glucose 298 H POC Glucose (mg/dL) 230 H Lactic Acid Uric Acid Calcium 8.2 L Iron TIBC % Saturation Unsat Iron Binding Transferrin Ferritin Total Bilirubin AST ALT Alkaline Phosphatase Lactate Dehydrogenase Total Protein Albumin Globulin Albumin/Globulin Ratio Lipase Vitamin B12 Folate Urine Color Urine Appearance Urine pH Ur Specific Fleming Urine Protein Urine Ketones Urine Blood Urine Nitrate Urine Bilirubin Urine Urobilinogen Ur Leukocyte Esterase Urine Glucose HIV 1&2 Ab/P24 Ag 4thGn Blood Type Antibody Screen Crossmatch Transfusion React Rpt Donor Unit # Post-Trans Blood Type Post-Trans ADRI 04/29/19 04/29/19 04/29/19 14:30 15:08 17:55 WBC 1.2 RBC 1.36 L Hgb 4.9 Hct 14 L MCV 103 H MCH 36 H MCHC 35 RDW 16 H Plt Count 15 MPV 5.6 L Neut % (Auto) 48.7 Lymph % (Auto) 46.3 Luce % (Auto) 4.8 Eos % (Auto) 0.1 Baso % (Auto) 0.1 Absolute Neuts (auto) 0.6 L* Absolute Lymphs (auto) 0.5 L Absolute Monos (auto) 0.1 Absolute Eos (auto) 0.0 Absolute Basos (auto) 0.0 Absolute Nucleated RBC 0.0 Nucleated RBC % 0.1 INR (Anticoag Therapy) 1.21 H APTT ABG pH 7.27 L ABG pCO2 51 H ABG pO2 117 H ABG HCO3 21.8 ABG O2 Saturation 98.3 H ABG Base Excess -4.0 L Respiration Rate 16 Ventilator Type 450 Vent Mode cmv FiO2 40 PEEP 5 Sodium Potassium Chloride Carbon Dioxide Anion Gap BUN Creatinine Est GFR ( Amer) Est GFR (Non-Af Amer) BUN/Creatinine Ratio Glucose POC Glucose (mg/dL) Lactic Acid Uric Acid Calcium Iron TIBC % Saturation Unsat Iron Binding Transferrin Ferritin Total Bilirubin AST ALT Alkaline Phosphatase Lactate Dehydrogenase Total Protein Albumin Globulin Albumin/Globulin Ratio Lipase Vitamin B12 Folate Urine Color Urine Appearance Urine pH Ur Specific Fleming Urine Protein Urine Ketones Urine Blood Urine Nitrate Urine Bilirubin Urine Urobilinogen Ur Leukocyte Esterase Urine Glucose HIV 1&2 Ab/P24 Ag 4thGn Blood Type Antibody Screen Crossmatch Transfusion React Rpt Donor Unit # Post-Trans Blood Type Post-Trans ADRI 04/29/19 17:55 WBC RBC Hgb Hct MCV MCH MCHC RDW Plt Count MPV Neut % (Auto) Lymph % (Auto) Luce % (Auto) Eos % (Auto) Baso % (Auto) Absolute Neuts (auto) Absolute Lymphs (auto) Absolute Monos (auto) Absolute Eos (auto) Absolute Basos (auto) Absolute Nucleated RBC Nucleated RBC % INR (Anticoag Therapy) APTT Patient Temperature ABG pH ABG pH (Temp Correct) ABG pCO2 ABG pCO2 (Temp Corrct ABG pO2 ABG pO2 (Temp Correct ABG HCO3 ABG O2 Saturation ABG Base Excess Respiration Rate Ventilator Type Vent Mode FiO2 Inspiratory Time PEEP Pressure Support Pressure Control EPAP IPAP BiPAP Sodium Potassium Chloride Carbon Dioxide Anion Gap BUN Creatinine Est GFR ( Amer) Est GFR (Non-Af Amer) BUN/Creatinine Ratio Glucose POC Glucose (mg/dL) Lactic Acid 1.0 Uric Acid Calcium Iron TIBC % Saturation Unsat Iron Binding Transferrin Ferritin Total Bilirubin AST ALT Alkaline Phosphatase Lactate Dehydrogenase Total Protein Albumin Globulin Albumin/Globulin Ratio Lipase Vitamin B12 Folate Urine Color Urine Appearance Urine pH Ur Specific Fleming Urine Protein Urine Ketones Urine Blood Urine Nitrate Urine Bilirubin Urine Urobilinogen Ur Leukocyte Esterase Urine Glucose HIV 1&2 Ab/P24 Ag 4thGn Blood Type Antibody Screen Crossmatch Transfusion React Rpt Donor Unit # Post-Trans Blood Type Post-Trans ADRI Studies: As mentioned Nutrition: None 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 Patient has no evidence of brainstem function. Plan: Do a formal brain determination after temperature and PCO2 are normalized. Critical Care Time: 75 minutes
--- NOTE | 2019-04-29 22:15 | PRO ---
PROCEDURE NOTE: DATE OF PROCEDURE: 04/29/19 - ROOM #[id number]-11 PROCEDURE: Insertion of a central venous catheter into the femoral vein. INDICATIONS: The patient is a 34-year-old male who was admitted earlier today with pancytopenia and developed abrupt onset of coma - was brought to the intensive care unit and was hypotensive, requiring vasopressor therapy. To facilitate vasopressor Rx, a triple-lumen central venous catheter was inserted in the right femoral vein without difficulty.There were no apparent adverse consequences (including bleeding). [id number]/[facility] #: [id number] [facility]
[2019-04-29 23:42] LABS: Free T4 0.76 ng/dL (0.61-1.12)
[2019-04-30] MEDS ORDERED: Norepinephrine 16MCG/ML IVPRE* 4,000 MCG/250 ML BAG IV SCH ×2 (03:00→10:22)
[2019-04-30 05:48] LABS: Urine Appearance Clear; Urine Bacteria Absent (Absent); Urine Bilirubin Negative (Negative); Urine Blood 3+ (Negative); Urine Color Colorless; Urine Glucose Negative (Negative); Urine Ketones Negative (Negative); Urine Nitrite Negative (Negative); Urine Protein Negative (Negative); Urine Red Blood Cell Trace(0-2/hpf) (Absent); Urine Specific Gravity 1.001 (1.010-1.030); Urine Urobilinogen Negative (Negative); Urine White Blood Cell Trace(0-5/hpf) (Absent)
[2019-04-30 06:01] LABS: ABS Lymphocytes 0.7 10^3/ul (1.0-4.8); ABS Monocytes 0.1 10^3/ul (0-0.8); ABS Neutrophils 0.7 10^3/ul (1.5-7.7); Hematocrit 17 % (42-52); Lymphocyte % 44.9 %; Mean Corpuscular HGB Conc 36 g/dL (31-36); Mean Corpuscular Hemoglobin 37 pg (27-31); Mean Corpuscular Volume 103 fL (80-94); Mean Platelet Volume 5.3 fL (7.4-10.4); Nucleated Red Blood Cells % 0.1; Platelet Count 24 10^3/uL (150-450); Red Blood Count 1.61 10^6 /uL (4.18-5.48); Red Cell Distribution Width 16 % (10-15); White Blood Count 1.5 10^3/uL (3.5-10.8)
[2019-04-30 06:03] LABS: Urine Benzodiazepine Screen None Detected (None Detect); Urine Opiates Screen None Detected (None Detect)
[2019-04-30] MEDS ORDERED: Norepinephrine VIAL* 1 MG/ML 4 ML VIAL ONE (07:26)
[2019-04-30 07:37] LABS: BUN/Creatinine Ratio 9.7 (8-20); Calcium 9.7 mg/dL (8.6-10.3); EGFR African American 57.4 (>60); EGFR Non-African American 47.4 (>60); Potassium 4.5 mmol/L (3.5-5.0)
[2019-04-30] MEDS ORDERED: NS 0.9% 500 ML* 492 ML with Norepinephrine VIAL* 8 MG IV SCH ×2 (11:04)
[2019-04-30] MEDS ORDERED: Norepinephrine VIAL* 8 MG in NS 0.9% 500 ML* 492 ML IV SCH (11:05)
[2019-04-30] MEDS ORDERED: Metoprolol Tartrate IV* 1 MG/ML 5 ML VIAL ONE (13:55)
--- NOTE | 2019-04-30 14:30 | PN ---
Progress Note - Progress Note Date of Service: 04/30/19 Note: BRAIN DETERMINATION The following exam was performed while the patient had a normal body temp, a normal blood pressure, and was receiving no drugs that would alter the mental status. Mentation: Coma: GCS = 3 Pupils dilated and unresponsive to light No corneal reflex (both sides) No oculovestibular reflex (both sides) No oculocephalic reflex No gag reflex No cough reflex Apnea Test: Patient removed from ventilator and placed on high flow O2 insufflation - After 10 minutes off the ventilator, the arterial PCO2 increased from 34 to 67 mm Hg without spontaneous breathing efforts. The above findings were confirmed by the neurologist. Dr. Graham. The brain diagnosis was confirmed at 2:10 PM on 04/30/2019. Critical Care Time: 40 minutes
[2019-04-30] MEDS: Norepinephrine VIAL* 8 MG in NS 0.9% 500 ML* 492 ML IV SCH ×3 (15:24→22:00)
--- NOTE | 2019-04-30 18:10 | PN ---
Subjective Date of Service: 04/30/19 Length of Stay: 1 Days Neurology is following for basilar artery thrombosis, cerebral edema, intracranial hemorrhage, and brain testing. Interval History: No change in examination overnight. He is not breathing over the ventilator. I met with family including his mother and cousin who came from [place]. I reviewed the laboratory data, CT head, and MRI brain imaging with the family. Review of Systems: Patient cannot participate in a review of systems. Family History: Findings - No family history of stroke or seizures Social History: Findings - lives with his male partner Past Medical History: Findings - tobacco use Objective Active Medications: Norepinephrine Bitartrate 8 mg (/ Sodium Chloride) 500 mls @ 7.5 mls/hr IV Q4H [facility]; Protocol Last Admin: 04/30/19 15:24 Dose: 131 mls/hr Vital Signs 04/30/19 04/30/19 04/30/19 14:30 14:45 15:00 Temperature 100.9 F 100.8 F 100.6 F Pulse Rate 115 119 121 Respiratory Rate Blood Pressure 117/97 126/105 157/117 (mmHg) O2 Sat by Pulse 98 98 98 Oximetry 04/30/19 15:15 Temperature 100.4 F Pulse Rate 122 Respiratory Rate Blood Pressure 149/105 (mmHg) O2 Sat by Pulse 98 Oximetry Intake and Output Last 24 Hours 04/28/19 04/29/19 04/30/19 05/01/19 06:59 06:59 06:59 06:59 Intake Total 1083 825 Output Total 5745 4300 Balance -4662 -3475 Weight 175 lb 8 oz 173 lb 4.8 oz Intake: IVPB 127 61 Medicated IV 255 764 CC - Norepinephrine/ 255 764 Levophed Oral 120 Platelets 581 Output: Urine 475 Dempsey 5270 4300 Other: # Bowel Movements 0 Oxygen Devices in Use Now: Nasal Cannula Neurology Exam: Unresponsive. Intubated. Not on sedation. Speech: non verbal Cranial Nerve: Unreactive dilated pupils bilaterally (OD 4 and OS 4). No corneal. No grimace to nasal stimulation. Absent oculocephalic reflexes. No gag reflex. Motor: flaccid tone throughout. Does not respond to noxious stimuli. Sensation: does not localize to pain Deep Tendon Reflex: 0 throughout Coordination: unable to perform Gait: Unable to perform Result Diagrams: 04/30/19 05:45 04/30/19 05:45 Additional Lab and Data: Laboratory Tests 04/29/19 04/29/19 04/29/19 00:52 01:19 01:56 INR (Anticoag Therapy) APTT Glucose 99 AST 22 ALT 25 Lipase 31 Ur Specific [place] 1.019 Urine Protein Negative Urine Blood Negative Ur Leukocyte Esterase Negative HIV 1&2 Ab/P24 Ag 4thGn Negative 04/29/19 02:55 INR (Anticoag Therapy) 1.16 H APTT 32.7 Glucose AST ALT Lipase Ur Specific [place] Urine Protein Urine Blood Ur Leukocyte Esterase HIV 1&2 Ab/P24 Ag 4thGn Microbiology and Other Data: Microbiology 04/29/19 11:19 Transfusion Reaction Gram Stain - Final Blood Bag Diagnostic Imaging: CTA chest: no infiltrates, no pulmonary emboli Assessment/Plan Brain testing was initiated today with Dr. Reyna. 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 The patient is normothermic when the brain testing was started. SBP > 90. He was never placed on any sedation or paralytic. Neuro exam shows no brainstem or motor response. Apnea test done by Dr. Reyna resulted in a pCO2 increase by more than 20 (Positive test confirming brain diagnosis). Declaration of brain at 1410 PM. Neurology will sign off. Please contact us for any questions or concerns.
[2019-04-30 19:47] LABS: Anaplasma phagocytophilum Negative (Negative); B. miyamotoi PCR, B Negative (Negative); Babesia divergens/MO-1 Negative (Negative); Babesia ducani Negative (Negative); Ehrlichia chaffeensis Negative (Negative); Ehrlichia ewingii/canis Negative (Negative); Ehrlichia muris eauclairensis Negative (Negative)
[2019-05-01] MEDS: Norepinephrine VIAL* 8 MG in NS 0.9% 500 ML* 492 ML IV SCH ×2 (02:10→05:53)
--- NOTE | 2019-05-01 02:10 | CONS ---
CONSULTATION REPORT: DATE OF CONSULT: 04/29/19 HISTORY OF PRESENT ILLNESS: The patient is a very pleasant 34-year-old gentleman who was admitted without significant past medical history, who was admitted for increased fatigue and shortness of breath for 2 weeks. The patient on admission was found to be an pancytopenic and for this reason after evaluation by Hematology, Dr. Ospina, he was offered the option to be transferred to [facility] for further workup. The patient's family requested the patient to be transferred to [place]. During that stay, the patient reported sudden onset of headache and became unresponsive. A code was called and I was requested to see the patient by the hospitalist team, Dr. Dowd, regarding the acute mental status changes. The patient was intubated by Dr. Ag and after being stabilized, was transferred for a stat CT scan of the head. The patient was evaluated immediately after the CT scan, which revealed significant left cerebral edema with small areas of hemorrhage with compression of the fourth ventricle and signs of brainstem compression. The patient was then admitted to intensive care unit as his platelet count was extremely low and pancytopenic. 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 Basilar cisterns were compressed as well as the foramen magnum with possible hemorrhagic conversion of the infarct and there was dense enhancement within the left cerebellum. Unclear if that would represent enhancement in the setting of subacute infarct or underlying mass while there was epidural soft tissue enhancement along the upper cervical spine. PAST MEDICAL HISTORY: None. PAST SURGICAL HISTORY: None. FAMILY HISTORY: Coronary artery disease, diabetes. SOCIAL HISTORY: Tobacco positive. Alcohol negative. Recreational use negative. The patient works in the [employer]. He is single and he lives with his male partner. The patient has no children. PHYSICAL EXAM: The patient was examined immediately after the CT scan of the head. The patient does not open his eyes to pain. His pupils are dilated and fixed and reactive. The patient has no motor response to painful stimuli. He has no corneal gag or cough reflex. DIAGNOSTIC STUDIES/LAB DATA: As stated above, the patient had CT scan of the brain with the above findings and also MRI of the brain with the above findings. Discussed MRI findings with the Dr. . 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 His clinical exam is extremely poor and given his exam as well as MRI findings, he has a grave prognosis. Discussed in extent with the patient's male partner while awaiting the results of the MRI due to the extreme poor prognosis as well as poor neurologic exam and his profound thrombocytopenia. No new neurosurgical intervention is indicated at this time. The patient was admitted to the ICU. Thank you for allowing us to participate in the care of this patient. Please do not hesitate to contact our office in case you have any further questions or concerns regarding the care of this patient. [id number]/CPS #: [id number] JACOB
[2019-05-01] MEDS ORDERED: Norepinephrine VIAL* 1 MG/ML 4 ML VIAL ONE (09:38)
[2019-05-01 11:25] VITALS: BP 90/72
--- NOTE | 2019-05-01 13:01 | DS ---
SUMMARY: DATE OF ADMISSION: 04/29/19 DATE OF : 05/01/19 HISTORY: This patient was a 34-year-old previously healthy male who was admitted with headache and pancytopenia - shortly after admission, there was a sudden deterioration in mental status, and a CAT scan that showed bilateral intracranial hemorrhage with tonsillar herniation - a subsequent MRI showed extensive brain stem and cerebellar infarction with hemorrhagic transformation. The patient was brought to the intensive care unit and, because of hypotension, was started on vasopressor therapy with Levophed. The day following admission, because of the absence of any apparent brainstem activity, a brain determination was performed (by the upsetter, Dr. John Reyna) and the examination fulfilled all the criteria for brain . This was corroborated by the neurologist (Dr. Graham) and the time of brain was determined to be 2:10 p.m. on 04/30/19. The patient's mother arrived from [place] at the time of the brain determination, so it was decided to allow the mother time to spend with her son before removing the body. In the morning of 05/01, the patient was removed from the ventilator - the time of cardiac was 10:20 A.M on 05/01/19. The medical lead has been contacted about this case, and will perform an autopsy. FINAL DIAGNOSES: 1. Pancytopenia, etiology unknown. 2. 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 3. Cerebral edema with herniation 4. Brain . [id number]/CPS #: [id number] MTDD
[2019-05-01 14:25] LABS: Albumin 3.8 g/dL (3.4-4.7); Albumin/Globulin Ratio 1.48; Total Protein(PEP) 6.4 g/dL (6.3 - 7.9)
== END 2019-05-01 10:36 | disposition expired | DRG 808 ==
LOC: ED 21:49 → MED 04-29 03:40 → ICU 04-29 14:41
PROVIDERS: ADMIT Internal Medicine; ATTEND Internal Medicine Critical Care Medicine
PROC: 30233R1 Transfusion of Nonautologous Platelets into Peripheral Vein, Percutaneous Approach (ICD-10-PCS; principal; 2019-04-29)
PROC: 0BH17EZ Insertion of Endotracheal Airway into Trachea, Via Natural or Artificial Opening (ICD-10-PCS; 2019-04-29)
PROC: 5A1935Z Respiratory Ventilation, Less than 24 Consecutive Hours (ICD-10-PCS; 2019-04-29)
PROC: 30233N1 Transfusion of Nonautologous Red Blood Cells into Peripheral Vein, Percutaneous Approach (ICD-10-PCS; 2019-04-29)
PROC: 06HM33Z Insertion of Infusion Device into Right Femoral Vein, Percutaneous Approach (ICD-10-PCS; 2019-04-30)
DX: D61.818 Other pancytopenia (principal); I61.3 Nontraumatic intracerebral hemorrhage in brain stem; G93.6 Cerebral edema; I63.02 Cerebral infarction due to thrombosis of basilar artery; G93.5 Compression of brain; N17.9 Acute kidney failure, unspecified; R40.2434 Glasgow coma scale score 3-8, 24 hours or more after hospital admission; F17.210 Nicotine dependence, cigarettes, uncomplicated; N18.9 Chronic kidney disease, unspecified; Z82.49 Family history of ischemic heart disease and other diseases of the circulatory system; Z81.8 Family history of other mental and behavioral disorders; Z83.3 Family history of diabetes mellitus
CPT/HCPCS: 36415; 36600; 70450; 70553; 71045; 71275; 80048; 80053; 80307; 81003; 81015; 82607; 82728; 82746; 82803; 83540; 83550; 83605; 83615; 83690; 84155; 84165; 84300; 84439; 84550; 85025; 85049; 85060; 85610; 85660; 85730; 86078; 86850; 86900; 86901; 86922; 87040; 87086; 87389; 87798; 93005; 94002; 94003; 99223; 99284; A9270-GY; A9579; J0692; J0780; J1885; J2150; J2270; J2405; J3490; P9035; P9040; Q9967